=== PATIENT | female | born 1950 | race Caucasian/White ===

== ENCOUNTER 2018-04-10 07:58 | Day surgery (SDC) | payer MEDICARE, BC ==
[2018-04-09 14:46] LABS: CLARITY,URINE SLIGHTLY CLOUDY (Clear); COLOR,URINE YELLOW (Yellow); GLUCOSE, URINE NEGATIVE (Neg); KETONES,URINE TRACE mg/dl (Neg); LEUKOCYTE ESTERASE ,URINE TRACE (Neg); NITRITES, URINE POSITIVE (Neg); OCCULT BLOOD,URINE NEGATIVE (Neg); PH,URINE 5.5 (4.8-8.0); PROTEIN,URINE NEGATIVE (Neg); UROBILINOGEN,URINE 0.2 E.U/dL (0.2-1.0)
[2018-04-09 14:48] LABS: UA COLLECTION TYPE NON-SPECIFIED
[2018-04-09 14:54] LABS: BACTERIA,URINE 4+ /HPF (Neg); MUCUS STRANDS MODERATE /LPF (Neg); SQUAMOUS EPITHELIAL CELL,UR MANY /LPF (FEW)
[2018-04-09 14:55] LABS: RBC,URINE NONE SEEN /HPF (0-2)
[~2018-04-10] VITALS: Ht 172.7 cm; Wt 84.1 kg
[2018-04-10] VITALS (13 sets, daily range): BP systolic 123–152; BP diastolic 56–87
[~2018-04-10 07:58] MED LIST: ASPI-529 PO; BIOT1CAP3 PO; VITA1CAP PO; ceFOXitin 2 GM ADDvantage bag 100 ML IV ONE; famotidine 20mg tablet PO ONE; ringers solution, lacted 1,000 ML IV SCH
[2018-04-10 09:48] LABS: BASOPHILS % (AUTO) 0.5 % (0-1); EOSINOPHILS # (AUTO) 0.1 X10'3 (0-0.9); EOSINOPHILS % (AUTO) 1.8 % (0-6); HEMATOCRIT 46.1 % (35.0-45.0); HEMOGLOBIN 15.9 g/dl (12.0-16.0); LYMPHOCYTES # (AUTO) 1.7 X10'3 (1.1-4.8); LYMPHOCYTES % (AUTO) 32.1 % (21-51); MEAN CORPUSCULAR HEMOGLOBIN 33.8 PG (27.0-31.0); MEAN CORPUSCULAR HGB CONC 34.5 % (33.0-36.5); MEAN CORPUSCULAR VOLUME 98.1 FL (78-98); MEAN PLATELET VOLUME 7.7 FL (7.4-10.4); MONOCYTES # (AUTO) 0.4 X10'3 (0-0.9); MONOCYTES % (AUTO) 6.9 % (2-12); NEUTROPHILS % (AUTO) 58.7 % (42-75); PLATELET COUNT 247 X10'3 (140-440); RED CELL DISTRIBUTION WIDTH 12.4 % (11.5-14.5); WHITE BLOOD COUNT 5.2 X10'3 (4.5-11.0)
[2018-04-10] MEDS ORDERED: BUPIVAcaine/PF 2.5mg/ml (0.25%) 10ml vial ONE (10:21)
[2018-04-10] MEDS ORDERED: ceFAZolin 1000mg inj ONE (10:21)
[2018-04-10] MEDS ORDERED: neostigmine methylsulfate 1 MG/ML 10ml vial ONE (10:48)
[2018-04-10] MEDS ORDERED: ondansetron/PF 4mg/2ml inj ONE (10:48)
[2018-04-10] MEDS ORDERED: dexamethasone sod phosphate 10mg/ml inj ONE (10:48)
[2018-04-10] MEDS ORDERED: sevoflurane 250ml liquid IH ONE (10:48)
[2018-04-10] MEDS ORDERED: glycopyrrolate 0.2mg/ml inj ONE (10:48)
[2018-04-10] MEDS ORDERED: fentaNYL/PF 50MCG/1 ML 2ML syringe ONE ×2 (10:50→11:15)
[2018-04-10] MEDS ORDERED: midazolam 2 mg/2 ml injection ONE (10:51)
[2018-04-10] MEDS ORDERED: LIDOcaine 2% (20mg/ml) 5ml vial ONE (11:01)
[2018-04-10] MEDS ORDERED: rocuronium 10mg/ml inj IV ONE (11:01)
[2018-04-10] MEDS ORDERED: propofol inj 20 ML IV ONE (11:01)
[2018-04-10] MEDS ORDERED: proCHLORperazine 10 MG/2 ml inj IV PRN (11:25)
[2018-04-10] MEDS ORDERED: ringers solution, lacted 1,000 ML IV SCH (11:25)
[2018-04-10] MEDS ORDERED: meperidine/PF 25mg/ml syringe IV PRN ×3 (11:25)
[2018-04-10] MEDS ORDERED: morphine 4 MG/ML inj SYRINge IV PRN ×2 (11:25)
[2018-04-10] MEDS ORDERED: ondansetron/PF 4mg/2ml inj IV PRN (11:25)
== END 2018-04-10 13:46 | disposition home or self-care (01) ==
LOC: PRE-OP 07:58
PROVIDERS: ATTEND Surgery
DX: K80.10 Calculus of gallbladder with chronic cholecystitis without obstruction (principal); I25.2 Old myocardial infarction; Z72.89 Other problems related to lifestyle; Z87.01 Personal history of pneumonia (recurrent); Z87.891 Personal history of nicotine dependence; Z90.710 Acquired absence of both cervix and uterus; Z79.82 Long term (current) use of aspirin; Z98.890 Other specified postprocedural states; Z79.899 Other long term (current) drug therapy; Z83.6 Family history of other diseases of the respiratory system
CPT/HCPCS: 36415; 47562; 81001; 82948; 85025; J0690; J0694; J0780; J1100; J2001; J2175; J2250; J2405; J2704; J2710; J3010; J3490; J7120; A7000